=== PATIENT | female | born 1930 | race Caucasian/White ===

== ENCOUNTER 2018-11-18 11:25 | Emergency (ER) | payer OTHER ==
[~2018-11-18] VITALS: Ht 160 cm; Wt 61.2 kg
[~2018-11-18 11:25] MED LIST: ADVIL100 M2; ALBUTEROL2.5 MG/0.5 IH; ASPIRIN EC81 M1 PO; CALCIUM 600 +1 EAC1 PO; CELEXA 10 MG TA10 M1 PO; HYDROCHLOROTHIA25 M1 PO; IBUPROFEN 200200 M1 PO; LEVOXYL75 MCG PO; NORCO 5-325 TA1 EACH PO; RANITIDINE 150150 M1; SIMVASTATIN40 MG PO; VITAMIN D400 UNI1; VITAMIN D400 UNI1 PO
[2018-11-18 11:54] LABS: URINE CLARITY HAZY; URINE COLOR YELLOW
[2018-11-18 11:55] LABS: URINE GLUCOSE-RANDOM* NEGATIVE (Negative); URINE KETONES TRACE (Negative); URINE PROTEIN (DIPSTICK) 1+ (Negative)
[2018-11-18 11:56] LABS: ICTOTEST (BILI CONFIRMATORY) Negative (Negative); URINE BILIRUBIN NEGATIVE (Negative); URINE BLOOD NEGATIVE (Negative); URINE LEUKOCYTES-REFLEX NEGATIVE (Negative); URINE NITRITE-REFLEX NEGATIVE (Negative)
[2018-11-18 11:57] LABS: HYALINE CASTS 0-3 Few /LPF (None Seen); SQUAMOUS 0-3 Few /LPF (0-3); URINE RBC 0-2 Rare /HPF (0-2); URINE WBC-REFLEX 0-5 Rare /HPF (0-5)
[2018-11-18 11:58] LABS: BACTERIA-REFLEX 1-9 Few /HPF (None Seen); CRYSTALS None Seen /LPF (None Seen); MUCUS 0-3 Light strn/LPF (None Seen)
[2018-11-18 12:04] LABS: ABSOLUTE NEUTROPHILS 3.4 thou/uL (1.4-8.2); BASOPHILS 0.4 % (0.0-2.0); EOSINOPHILS 0.7 % (0.0-3.0); HEMATOCRIT 39.5 % (37.0-47.0); HEMOGLOBIN 13.1 gm/dL (12.0-15.0); LYMPHOCYTES 17.1 % (24.0-44.0); MCH 29.3 pg (26.0-34.0); MCHC 33.2 g/dL (28.0-37.0); MCV 88.3 fL (80.0-100.0); MONOCYTES 8.5 % (1.0-8.0); PLATELET COUNT 188 thou/uL (150-400); POLYS 73.3 % (36.0-66.0); RBC 4.47 mil/uL (4.20-5.00); RDW 14.2 % (10.5-14.5); WBC 4.6 thou/uL (4.0-11.0)
[2018-11-18 12:14] LABS: CALCIUM 9.3 mg/dL (8.5-10.1); CREATININE 0.9 mg/dL (0.6-1.0); POTASSIUM 3.4 mmol/L (3.5-5.1)
[2018-11-18 12:17] LABS: ALBUMIN 3.8 g/dL (3.4-5.0); TOTAL BILIRUBIN 1.7 mg/dL (<0.1-1.0); TOTAL PROTEIN 7.1 g/dL (6.4-8.2)
[2018-11-18] MEDS ORDERED: LOPERAMIDE 2 MG2 M1 PO (13:15)
[2018-11-18 13:16] VITALS: BP 124/59
== END 2018-11-18 13:32 | disposition home or self-care (01) ==
LOC: ER 11:25
PROVIDERS: Physician Assistant
DX: R19.7 Diarrhea, unspecified (principal); I10 Essential (primary) hypertension; F32.9 Major depressive disorder, single episode, unspecified; Z90.49 Acquired absence of other specified parts of digestive tract; E89.0 Postprocedural hypothyroidism; Z88.0 Allergy status to penicillin; Z88.5 Allergy status to narcotic agent

== ENCOUNTER 2019-05-06 07:14 | Emergency (ER) | payer OTHER ==
[~2019-05-06] VITALS: Ht 160 cm; Wt 61.2 kg
[~2019-05-06 07:14] MED LIST changes: +LOPERAMIDE 2 MG2 M1 PO
[2019-05-06] MEDS ORDERED: AZITHROMYCIN 2250 MG PO (08:33)
[2019-05-06 08:44] VITALS: BP 139/67
== END 2019-05-06 08:46 | disposition home or self-care (01) ==
LOC: ER 07:14
DX: J40 Bronchitis, not specified as acute or chronic (principal); I10 Essential (primary) hypertension; E78.5 Hyperlipidemia, unspecified; Z90.49 Acquired absence of other specified parts of digestive tract; Z98.890 Other specified postprocedural states; Z88.0 Allergy status to penicillin; Z88.5 Allergy status to narcotic agent